=== PATIENT | female | born 1980 | race Caucasian/White ===

== ENCOUNTER 2019-07-24 11:10 | Emergency (ER) | payer MEDICAID ==
[~2019-07-24] VITALS: Ht 160 cm; Wt 110.0 kg
[2019-07-24] MEDS ORDERED: ipratropium/albuterol 3ml nebule NEB ONE (11:35)
[2019-07-24] MEDS ORDERED: dexamethasone 4mg tablet PO ONE (11:35)
[2019-07-24] MEDS ORDERED: PRED20TA PO (11:36)
[2019-07-24] MEDS ORDERED: ALBU18HF2 INH (11:36)
[2019-07-24] MEDS ORDERED: DOXY100C43 PO (11:36)
[2019-07-24] MEDS ORDERED: ALB0.5UD IH (12:54)
[2019-07-24 12:59] VITALS: BP 160/75
== END 2019-07-24 13:03 | disposition home or self-care (01) ==
LOC: ER 11:11
DX: J45.901 Unspecified asthma with (acute) exacerbation (principal); J20.9 Acute bronchitis, unspecified; F17.210 Nicotine dependence, cigarettes, uncomplicated; Z79.2 Long term (current) use of antibiotics; Z79.899 Other long term (current) drug therapy
CPT/HCPCS: 93005; 94640; 94760; 99283; 99406

== ENCOUNTER 2019-09-17 10:25 | Emergency (ER) | payer MEDICAID ==
[~2019-09-17] VITALS: Ht 160 cm; Wt 116.9 kg
[~2019-09-17 10:25] MED LIST: ALBU18HF2 INH
[2019-09-17 10:41] VITALS: BP 140/89
[2019-09-17] MEDS ORDERED: penicillin G benzathine 1.2 million unit/2ml syringe IM ONE (11:20)
--- NOTE | 2019-09-17 11:21 | NUR ---
CALLED PHARMACY FOR BI CILLIN, DOSE NOT IN OMNICELL
[2019-09-18 05:39] LABS: RPR Non Reactive (Non Reactive)
== END 2019-09-17 11:46 | disposition home or self-care (01) ==
LOC: ER 10:26
DX: Z20.2 Contact with and (suspected) exposure to infections with a predominantly sexual mode of transmission (principal); J45.909 Unspecified asthma, uncomplicated; Z79.899 Other long term (current) drug therapy
CPT/HCPCS: 36415; 86592; 96372; 99283; J0561

== ENCOUNTER 2025-02-05 21:22 | Emergency (ER) | payer MEDICAID ==
[~2025-02-05] VITALS: Ht 160 cm; Wt 105.7 kg
[2025-02-05 21:27] VITALS: BP 197/101; PULSE 100; RESP 16; TEMP 98.4; O2SAT 94
--- NOTE | 2025-02-05 23:09 | Physician Documentation ---
History of Present Illness ~ Chief Complaint: Rash Stated Complaint: RASH Time Seen by MD: 21:36 Primary Medical Doctor: none HPI Patient is seen today with complaints of skin lesions in the genital area/anus area. Patient states she 1st noticed them a few weeks ago and is concerned they might be getting worse. She states she has any committed monogamous relationship. She has no other concern or complaint at this time. She denies any fevers or chills or skin lesions of any other areas concerning to her. Medication Reconciliation Allergies: Coded Allergies: No Known Allergies (Unverified , 02/05/25) Scheduled Albuterol Sulfate (Ventolin Hfa), 2 PUFFS INH Q4HPRN Past Medical History Past Medical History: Asthma Past Surgical History: noncontributory Drug Use: none Lives In: Home Review of Systems Constitutional: Denies: chills, fever, weakness Eyes: Denies: pain, blurred vision ENT: Denies: ear pain, nose pain, throat pain, mouth pain Respiratory: Denies: cough, shortness of breath Cardiovascular: Denies: chest pain, palpitations Gastrointestinal: Denies: abdominal pain, nausea, vomiting Genitourinary: Denies: burning, dysuria Female Genitalia: Denies: vaginal discharge, pelvic pain Neurological: Denies: headache, dizziness Musculoskeletal: Denies: pain, swelling Integumentary: Denies: rash, lesions Allergic/Immunologic: Denies: hives, itching Hematologic/Lymphatic: Denies: no symptoms reported Psychiatric: Denies: depression, anxiety Physical Exam Vital Signs: Temperature: 98.4, Heart Rate: 100, Respiratory Rate: 16, BP: 197/101, Pulse Oximetry: 94, Weight: 105.700 Physical Exam General: Awake and Alert, no acute distress. HEENT: Conjunctiva pink, Sclera clear, Mucus Membranes moist. Neck: Supple without masses and tenderness. Resp: Unlabored. Lungs clear to auscultation bilaterally. Heart: Regular Rate and rhythm, normal S1 and S2 without murmur, rub or gallop. Rectal: Patient on exam does have multiple flat warts surrounding the anus consistent with HPV perianal warts/genital warts. Extremities: No cyanosis,clubbing or edema. Skin: Warm and Dry. Progress Results/Orders Results/Orders Vital Signs 02/05/25 21:27 Temp 98.4 Pulse 100 Resp 16 B/P (MAP) 197/101 Pulse Ox 94 Medical Decision Making Findings Patient is seen today with complaints of skin lesions in the genital area/anus area. Patient states she 1st noticed them a few weeks ago and is concerned they might be getting worse. She states she has any committed monogamous relationship. She has no other concern or complaint at this time. She denies any fevers or chills or skin lesions of any other areas concerning to her. Patient will follow up with primary care for referral to Dermatology for further eval and treatment. 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 Return to ED with any worsening, concerning or changing symptoms. Departure Disposition: 01 HOME / SELF CARE / HOMELESS Impression: Primary Impression: Perianal venereal warts Condition: Stable Discharge Instructions: Genital Warts, [id number] Additional Instructions: Patient will follow up with primary care for referral to Dermatology for further eval and treatment. 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 Return to ED with any worsening, concerning or changing symptoms. Referrals: NO PRIMARY CARE PROVIDER (PCP) Signature Scribe Signature: No scribe Attestation: No scribe NIKOLE PRESSLEY PAC Feb 05, 2025 23:09
== END 2025-02-05 23:20 | disposition home or self-care (01) ==
LOC: ER 21:22
DX: A63.0 Anogenital (venereal) warts (principal); J45.909 Unspecified asthma, uncomplicated; Z79.899 Other long term (current) drug therapy
CPT/HCPCS: 99281